=== PATIENT | male | born 1975 | race Caucasian/White ===

== ENCOUNTER → 2016-05-07 | Outpatient (CLI) | payer BC ==
[2013-09-11 18:51] VITALS: BP 132/75
--- NOTE | 2016-05-08 17:48 | SLEEP ---
DATE OF STUDY: 05/07/2016 DATE OF STUDY: 05/07/2016 REFERRING PHYSICIAN: Kelly Yip PA-C. The patient is a 41-year-old who weighs 248 pounds with a BMI of 40. The patient's [place] score was 13. The patient underwent split night study at [facility]. During the night study, the patient spent 420 minutes in bed and slept for 320 minutes with a sleep efficiency of 76%. Sleep latency was 28 minutes with a REM latency of 257 minutes. Overall, sleep architecture showed increased stage I sleep, reduced stage II sleep, increased slow wave and normal REM sleep. During the initial diagnostic portion of the study, the patient slept for 145 minutes. During this time, there were 32 obstructive apneas, no mixed or central apneas. There were 68 hypopneas. The patient's apnea hypopnea index was 42 per hour. Supine index 67 per hour. REM sleep was not seen during the diagnostic portion of the study. EKG monitoring revealed normal sinus rhythm, average heart rate was 77 beats per minute. No sustained arrhythmias were observed. Nocturnal oximetry study revealed a mean oxygen saturation 93% with lowest of 77%. 17% of time oxygen saturation remained between 80% and 89%. PLMS were seen at index of 1 per hour and 1 per hour caused EEG arousals. The patient met the criteria for CPAP initiation. It was started at 5 cm of water and titrated up to 9 cm of water. At the final pressure, the patient had 96 minutes of sleep. The patient had supine as well as REM sleep. AHI was reduced to 0 per hour and oxygen saturation remained above 91%. The patient used a medium sized nasal pillows. IMPRESSION: 1. Severe sleep apnea-hypopnea syndrome at an AHI of 42 per hour. 2. Nocturnal hypoxia secondary to obstructive sleep apnea, but resolved with CPAP. 3. No clinically significant PLMS. RECOMMENDATIONS: 1. CPAP at 9 cm water completely eliminated patient's sleep apnea, should be used on a nightly basis. 2. Follow up in 4-6 weeks to assess compliance with CPAP and to document clinical improvement. 3. Weight loss is strongly advised. 4. Avoid [employer] depressants. 5. Caution regarding driving until symptoms of sleep apnea resolve with the use of CPAP. FILEMON U. TEJEDA, MD DR: ALICIA/dwayne JOB#: [id number] / [id number] JOHN
== END | disposition home or self-care (01) ==
LOC: SLPLAB 18:41
PROVIDERS: ATTEND Physician Assistant Surgical
DX: G47.33 Obstructive sleep apnea (adult) (pediatric) (principal)
CPT/HCPCS: 95810